=== PATIENT | male | born 1970 | race Caucasian/White ===

== ENCOUNTER 2020-06-24 20:50 | Emergency (ER) | payer MEDICARE, MEDICAID ==
[~2020-06-24] VITALS: Ht 185.4 cm; Wt 90.0 kg
[~2020-06-24 20:50] MED LIST: AMOX-462 PO; CLOT15C TP; GABA-1181 PO; HYDR-4031 PO; MULT-1238 PO; SOLI5 PO; THIOT10 PO
[2020-06-24] MEDS ORDERED: ASPIRIN 325 MG TABLET PO ONE (22:30)
[2020-06-24] MEDS ORDERED: CEPHALEXIN MONOHYDRATE 500 MG CAPSULE PO ONE (22:30)
[2020-06-24 22:50] VITALS: BP 138/89
== END 2020-06-24 22:55 | disposition home or self-care (01) ==
LOC: EMS 20:50
DX: S93.401A Sprain of unspecified ligament of right ankle, initial encounter (principal); S93.402A Sprain of unspecified ligament of left ankle, initial encounter; L03.116 Cellulitis of left lower limb; L03.115 Cellulitis of right lower limb; R60.0 Localized edema; F17.210 Nicotine dependence, cigarettes, uncomplicated; F12.90 Cannabis use, unspecified, uncomplicated; W01.0XXA Fall on same level from slipping, tripping and stumbling without subsequent striking against object, initial encounter; Y93.89 Activity, other specified; Y92.89 Other specified places as the place of occurrence of the external cause; Y99.8 Other external cause status